=== PATIENT | female | born 1945 | race Caucasian/White ===

== ENCOUNTER → 2020-08-03 | Outpatient (CLI) | payer MEDICARE ==
[~2020-08-03] MED LIST: METHACHOLINE KIT (J7674) INH ONE
--- NOTE | 2020-08-10 11:42 | PFTRPT ---
Height: 63.50 Inches Weight: 190.00 Lbs BSA: 1.90 Diagnosis: R05 DATE: 08/03/2020 ORDERED BY: Jeanie Zelaya N.P. QUALITY: Study of excellent technical quality. PROCEDURE: Under protocol, methacholine was administered. Even after a maximum dose of 25 mg or 188.875 CDUs, no provocation dose was ever achieved. IMPRESSION: Negative methacholine challenge study. MTDD
== END ==
LOC: M CARPUL 09:10
PROVIDERS: ATTEND Nurse Practitioner Family
DX: R05 Cough (principal)
CPT/HCPCS: 94070; 95070; J7674

== ENCOUNTER → 2023-03-20 | Outpatient (CLI) | payer MEDICARE | LOC: M SOG 07:59 | PROVIDERS: ATTEND Physician Assistant | DX: M25.531 Pain in right wrist (principal); M25.532 Pain in left wrist; M19.031 Primary osteoarthritis, right wrist; M19.032 Primary osteoarthritis, left wrist ==

== ENCOUNTER → 2023-06-10 | Outpatient (CLI) | payer MEDICARE | LOC: M SOG 07:49 | PROVIDERS: ATTEND Physician Assistant | DX: M25.561 Pain in right knee (principal) ==